=== PATIENT | female | born 1970 | race Caucasian/White ===

== ENCOUNTER 2016-08-26 21:56 | Emergency (ER) | payer MEDICAID ==
--- NOTE | 2016-08-26 22:38 | EDPHY ---
H & P Stated Complaint: poss L arm infection HPI/ROS: HPI CHIEF COMPLAINT: [ ] HISTORY OF PRESENT ILLNESS: [Need 4: Location, Duration, Severity, Quality, Context, Timing Modifying Factors, Associated S&S] Past Medical History: Past Surgical History: Social History: Family History: ROS REVIEW OF SYSTEMS: A comprehensive 10 point review of systems is otherwise negative aside from elements mentioned in the history of present illness. Exam Constitutional triage nursing summary reviewed, vital signs reviewed, awake/ alert. Eyes normal conjunctivae and sclera, EOMI, PERRLA. HENT normal inspection, atraumatic, moist mucus membranes, no epistaxis, neck supple/ no meningismus, no raccoon eyes. Respiratory clear to auscultation bilaterally, normal breath sounds, no respiratory distress, no wheezing. Cardiovascular rate normal, regular rhythm, no murmur, no edema, distal pulses normal. Gastrointestinal soft, non-tender, no rebound, no guarding, normal bowel sounds, no distension, no pulsatile mass. Genitourinary no CVA tenderness. Musculoskeletal no midline vertebral tenderness, full range of motion, no calf swelling, no tenderness of extremities, no meningismus, good pulses, neurovascularly intact. Skin pink, warm, & dry, no rash, skin atraumatic. Neurologic awake, alert and oriented x 3, AAOx3, moves all 4 extremities equally, motor intact, sensory intact, CN II-XII intact, normal cerebellar, normal vision, normal speech. Psychiatric normal mood/affect. Heme/Lymph/Immune no lymphadenopathy. Differential Diagnosis: Medical Decision Making: Re-evaluation: Source: Patient - Personal History LMP (Females 10-55): 22-28 Days Ago Current Tetanus/Diphtheria Vaccine: No Current Tetanus Diphtheria and Acellular Pertussis (TDAP): No - Medical/Surgical History Hx Asthma: No Hx Chronic Respiratory Disease: No Hx Diabetes: No Hx Cardiac Disease: No Hx Renal Disease: No Hx Cirrhosis: No Hx Alcoholism: No Hx HIV/AIDS: No Hx Splenectomy or Spleen Trauma: No Other PMH: denies - Social History Smoking Status: Never smoked Constitutional: Initial Vital Signs Temperature (C) 36.8 C 08/26/16 22:15 Heart Rate 98 08/26/16 22:15 Respiratory Rate 16 08/26/16 22:15 Blood Pressure 188/136 H 08/26/16 22:15 O2 Sat (%) 99 08/26/16 22:15 O2 Delivery Mode Room Air Allergies/Adverse Reactions: No Known Allergies Allergy (Unverified 08/26/16 22:14) Home Medications: Medication Instructions Recorded NK [No Known Home Meds] 08/26/16 Departure - Departure Referrals: NONE *PRIMARY CARE P,. [Primary Care Provider] - As per Instructions
--- NOTE | 2016-08-26 22:54 | EDPHY ---
H & P Stated Complaint: poss L arm infection HPI/ROS: CHIEF COMPLAINT: Spider bite HISTORY OF PRESENT ILLNESS: This is a healthy 46-year-old female who believe she was bitten by a spider or other insect while [place]. This occurred last night. Bite is on her left anteromedial arm just distal to the elbow. Since 1st noticing it there has been spreading erythema with some streaking up her arm. She also notices and a large lymph node in the left axilla. She has not had fever. She does not feel ill. She has no weakness or numbness. No limitation of range of motion of her left shoulder, elbow, or wrist. No previous history of cellulitis or MRSA. She is not immune compromised. REVIEW OF SYSTEMS: A ten point review of systems was performed and is negative with the exception of the items mentioned in the HPI. Source: Patient Exam Limitations: No limitations - Personal History LMP (Females 10-55): 22-28 Days Ago Current Tetanus/Diphtheria Vaccine: No Current Tetanus Diphtheria and Acellular Pertussis (TDAP): No - Medical/Surgical History Hx Asthma: No Hx Chronic Respiratory Disease: No Hx Diabetes: No Hx Cardiac Disease: No Hx Renal Disease: No Hx Cirrhosis: No Hx Alcoholism: No Hx HIV/AIDS: No Hx Splenectomy or Spleen Trauma: No Other PMH: denies - Social History Smoking Status: Never smoked - Physical Exam Exam: General Appearance: Alert. Vital signs reviewed. Initial blood pressure 188/ 136. Repeat blood pressure is 177/113. Eyes: Pupils equal and round, no conjunctival injection, no discharge. Anicteric. is Neck: No cervical lymphadenopathy, supple. Lymph nodes: Enlarged left axillary lymph node. Respiratory: Lungs are clear to auscultation; no wheezes, rales, or rhonchi. Cardiovascular: Regular rate and rhythm; no murmur, rub, or gallop. Skin: There is a 3 x 5 cm area of erythema surrounding a puncture wound that is distal to her left elbow on the anteromedial surface. There is some lymph and did extremely [place] extending toward the axilla. The erythematous area is warm. There is no tenderness. Back: Nontender to palpation over the thoracolumbar spine. No CVAT. Extremities: She has no limitation of movement of her left shoulder, elbow, and wrist. Neurological: Alert and oriented. Moving all four extremities easily and equally. Sensation intact to light touch over her left upper extremity. Psychiatric: Normal affect. Constitutional: Initial Vital Signs Temperature (C) 36.8 C 08/26/16 22:15 Heart Rate 98 08/26/16 22:15 Respiratory Rate 16 08/26/16 22:15 Blood Pressure 188/136 H 08/26/16 22:15 O2 Sat (%) 99 08/26/16 22:15 O2 Delivery Mode Room Air Allergies/Adverse Reactions: No Known Allergies Allergy (Unverified 08/26/16 22:14) Home Medications: Medication Instructions Recorded Cephalexin [Keflex] 500 mg PO TID #16 cap 08/26/16 Sulfamethox/Tmp 800/160 mg 1 tab PO BID #11 tab 08/26/16 [Bactrim Ds] Medical Decision Making ED Course/Re-evaluation: Left arm cellulitis with lymphangitic streaking and an enlarged lymph node. She does not appear toxic or otherwise ill. She was started on Bactrim and Keflex orally in the emergency department. The cellulitic area was outlined. We discussed the expected progression of this illness. We reviewed the danger signs that should prompt her to be re-evaluated immediately. 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 There is a nurse at the camp and she will pay close attention to the cellulitis and the streaking. I referred her to infectious disease an altered state to a primary care physician. She will likely seek out care in [place], where she lives. I have informed her about her high blood pressure. She had blood pressure 177/113 at the time of my evaluation in the emergency department. She tells me that she had high blood pressure in the dentist's office once in the past but has not been diagnosed with hypertension. She understands the importance of having this followed up and she will establish care with a primary care physician. Differential Diagnosis: I considered a differential diagnosis that includes but is not limited to cellulitis, abscess, bacteremia, sepsis, and DVT. - Data Points Medications Given: Discontinued Medications Cephalexin HCl (Keflex) 500 mg PO EDNOW ONE PRN Reason: Protocol Stop: 08/26/16 23:04 Last Admin: 08/26/16 23:12 Dose: 500 mg Trimethoprim/Sulfamethoxazole (Bactrim Ds) 1 ea PO EDNOW ONE PRN Reason: Protocol Stop: 08/26/16 23:04 Last Admin: 08/26/16 23:13 Dose: 1 ea Departure - Departure Disposition: Home, Routine, Self-Care Clinical Impression: Lymph angiitis Cellulitis Qualifiers: Site of cellulitis: extremity Site of cellulitis of extremity: upper extremity Laterality: left Qualified Code(s): L03.114 - Cellulitis of left upper limb Condition: Good Instructions: Cellulitis (ED), Lymphangitis (ED) Additional Instructions: Take the antibiotics, Keflex and Bactrim, as prescribed. You will not see immediate improvement, in fact you will likely get slightly worse before you start to get better. Do not be alarmed by this. If you fail to improve or if you are worsening--fever, feeling ill, arm pain, new or concerning symptoms--should be re-evaluated immediately. I am referring you to Dr. Dariel Cardona, infectious disease specialist, for follow -up. He works at [facility]. It is fine for you to see any provider there. If you would like to see a doctor in [place] I recommend that you try [facility]. Ask for their Infectious Disease Clinic. Let the office staff know that you were evaluated in the emergency department in [place]. I am also referring you to Dr. Stefania Pradhan for primary care. If you prefer, you can see someone in [place]. However, it is imperative that you have your blood pressure readings followed up. Your blood pressure was 177/113 in the emergency department. This is quite high. Referrals: Stefania Pradhan MD [Medical Doctor] - As per Instructions Dariel Cardona MD [Medical Doctor] - As per Instructions Prescriptions: Cephalexin [Keflex] 500 mg PO TID #16 cap Sulfamethox/Tmp 800/160 mg [Bactrim Ds] 1 tab PO BID #11 tab
[2016-08-26 23:02] VITALS: RESP 20
[2016-08-26] MEDS ORDERED: SULFAMETHOX/TMP 800/160 MG 1 TAB PO ONE (23:03)
[2016-08-26] MEDS ORDERED: CEPHALEXIN 500 MG CAP PO ONE (23:03)
[2016-08-26] MEDS ORDERED: CEPHALEXIN 500MG PREPACK#4 BTL TAKEHOME ONE (23:16)
[2016-08-26] MEDS ORDERED: SULFAMET/TMP DS PREPACK#2 BTL TAKEHOME ONE (23:16)
[2016-08-26 23:48] VITALS: BP 181/115; PULSE 89; TEMP 98.6; O2SAT 97
== END 2016-08-26 23:48 | disposition home or self-care (01) ==
DX: L03.114 Cellulitis of left upper limb (principal)

== ENCOUNTER 2018-08-21 21:35 | Emergency (ER) | payer MEDICAID | END 2018-08-21 22:03 | disposition home or self-care (01) ==